=== PATIENT | female | born 1980 ===

== ENCOUNTER → 2018-09-25 | Outpatient (CLI) | payer OTHER ==
[2018-09-26 13:11] LABS: HPV 16 Negative (Negative); HPV 18 Negative (Negative); HPV OTHER HR TYPES Negative (Negative)
== END ==
LOC: LAB 14:12 → LAB SHORT 14:12
PROVIDERS: Registered Nurse Community Health
DX: Z12.4 Encounter for screening for malignant neoplasm of cervix (principal); Z30.012 Encounter for prescription of emergency contraception; Z30.011 Encounter for initial prescription of contraceptive pills
CPT/HCPCS: 87624; G0123